=== PATIENT | female | born 1995 | race Two or more races ===

== ENCOUNTER 2016-11-08 16:59 | Emergency (ER) | payer OTHER ==
[2016-11-08 17:31] LABS: INFLUENZA A NEG (NEG); INFLUENZA B NEG (NEG)
== END 2016-11-08 18:03 | disposition home or self-care (01) ==
LOC: CFTX 16:59
PROVIDERS: Nurse Practitioner Family
DX: O21.9 Vomiting of pregnancy, unspecified (principal)
CPT/HCPCS: 84703; 87804; 99284